=== PATIENT | female | born 2000 | race Caucasian/White ===

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

== ENCOUNTER → 2020-05-05 | Outpatient (CLI) | payer OTHER ==
[~2020-05-05] MED LIST changes: +ACHYD1T PO; -HYDR-3820 PO; -MONT10TA24 PO; +MONT10TA26 PO
== END ==
LOC: LAB FS 14:16
PROVIDERS: ATTEND Obstetrics & Gynecology
DX: O20.9 Hemorrhage in early pregnancy, unspecified (principal)
CPT/HCPCS: 36415; 84702

== ENCOUNTER → 2020-05-12 | Outpatient (CLI) | payer OTHER ==
[2020-05-12 09:59] LABS: HEMATOCRIT 40 % (35-52); HEMOGLOBIN 14.2 G/DL (11.5-16.0); MEAN CORPUSCULAR HEMOGLOBIN 31 PG (25-34); MEAN CORPUSCULAR HGB CONC 35 G/DL (32-36); MEAN CORPUSCULAR VOLUME 87 FL (80-99); MEAN PLATELET VOLUME 8.4 FL (7.4-10.4); PLATELET COUNT 280 10^3/uL (130-400); RED CELL DISTRIBUTION WIDTH 11.7 % (10.0-14.5); WHITE BLOOD COUNT 4.6 10^3/uL (4.3-11.0)
[2020-05-12 10:00] LABS: BASOPHILS % (AUTO) 0 % (0-10); EOSINOPHILS # (AUTO) 0.3 10^3/uL (0.0-0.3); EOSINOPHILS % (AUTO) 6 % (0-10); LYMPHOCYTES % (AUTO) 30 % (12-44); MONOCYTES % (AUTO) 6 % (0-12); NEUTROPHILS # (AUTO) 2.7 X 10^3 (1.8-7.8); NEUTROPHILS % (AUTO) 58 % (42-75)
[2020-05-12 10:01] LABS: LYMPHOCYTES # (AUTO) 1.4 X 10^3 (1.0-4.0); MONOCYTES # (AUTO) 0.3 X 10^3 (0.0-1.0)
== END ==
LOC: LAB FS 09:23
PROVIDERS: ATTEND Family Medicine
DX: Z34.00 Encounter for supervision of normal first pregnancy, unspecified trimester (principal)
CPT/HCPCS: 36415; 80055; 86703; 87088

== ENCOUNTER → 2020-07-06 | Outpatient (CLI) | payer MEDICAID | LOC: LAB FS 09:56 | PROVIDERS: ATTEND Family Medicine | DX: Z34.02 Encounter for supervision of normal first pregnancy, second trimester (principal); Z3A.00 Weeks of gestation of pregnancy not specified | CPT/HCPCS: 36415; 82105; 84702; 86336 ==

== ENCOUNTER 2020-08-22 19:54 | Emergency (ER) | payer MEDICAID ==
[~2020-08-22] VITALS: Ht 160 cm; Wt 53.5 kg
[2020-08-22 20:10] VITALS: BP 124/65
--- NOTE | 2020-08-22 20:15 | ED EENT ---
History of Present Illness General Chief Complaint: Dental Problems/Pain Stated Complaint: TOOTH/EAR PAIN Source: patient Exam Limitations: no limitations History of Present Illness Date Seen by Provider: Aug 22, 2020 Time Seen by Provider: 19:55 Initial Comments The patient is a pleasant 20-year-old female who presents for evaluation of left upper dental pain which is been bothering her for several weeks. She saw a dentist approximately 5 weeks ago and was told that she needed a root canal and was prescribed amoxicillin. She states that she took the medication for a while because East infection so she stopped for a week and a half and then she started taking it again. She is now out of antibiotics. She says the pain is why she is here. She saw a dentist last week and they're planning to do a root canal on her tooth September 30. She states that she cannot wait that long. She says that she is approximately 24 weeks at this time and is only taking Tylenol for the pain. She denies any other complaints. She is alert and oriented 4, calm, and appears to be in no distress this time. Timing/Duration: gradual Severity: moderate Prearrival Treatment: over the counter meds (Tylenol) Associated Symptoms: tooth pain Allergies and Home Medications Allergies Coded Allergies: No Known Drug Allergies (Unverified , 12/15/17) Home Medications Albuterol Sulfate 1 Puff Puff, 2 PUFF IH Q4H PRN for WHEEZING, (Reported) 1 PUFF = 90 MCG Montelukast Sodium 10 Mg Tablet, 10 MG PO DAILY, (Reported) Pantoprazole Sodium 40 Mg Tablet.dr, 40 MG PO DAILY, (Reported) Patient Home Medication List Home Medication List Reviewed: Yes Review of Systems Review of Systems Constitutional: no symptoms reported Eyes: No Symptoms Reported Ears: No Symptoms Reported Nose: no symptoms reported Mouth: other (left upper posterior dental pain) Throat: no symptoms reported Respiratory: no symptoms reported Cardiovascular: no symptoms reported Gastrointestinal: no symptoms reported Musculoskeletal: no symptoms reported Skin: no symptoms reported Neurological: No Symptoms Reported Hematologic/Lymphatic: No Symptoms Reported Immunological/Allergic: no symptoms reported All Other Systems Reviewed Negative Unless Noted: Yes Past Sjdrdai-Kkxslp-Wqxzfp Hx Past Med/Social Hx: Reviewed Nursing Past Med/Soc Hx Patient Social History Recent Foreign Travel: No Contact w/Someone Who Travel: No Recent Hopitalizations: No Seasonal Allergies Seasonal Allergies: Yes Past Medical History Surgeries: Yes Gallbladder Respiratory: No Asthma Currently Using CPAP: No Currently Using BIPAP: No Cardiac: Yes Heart Murmur Reproductive Disorders: No Female Reproductive Disorders: Denies Sexually Transmitted Disease: No HIV/AIDS: No Gastroesophageal Reflux Anxiety Adverse Reaction/Blood Tranf: No (N/A) Physical Exam Height, Weight, BMI Height: 5'2.00" Weight: 100lbs. 0.0oz. [id number]; 18.3 BMI Method: General Appearance: WD/WN, no apparent distress Eyes: bilateral eye normal inspection, bilateral eye PERRL, bilateral eye EOMI Mouth/Throat: other (tooth #16 with dental salas ) Neck: non-tender, full range of motion, supple Cardiovascular: regular rate, rhythm, no edema, no murmur Respiratory: lungs clear, normal breath sounds, no respiratory distress Neurologic/Psychiatric: sawyer cork slabs II-XII nml as tested, no motor/sensory deficits, alert, normal mood/affect, oriented x 3 Skin: normal color, warm/dry Progress/Results/Core Measures Progress Progress Note : Progress Note @2027 - Patient given some dental resources to contact to get an appointment for a root canal sooner than September 30. Intraoral anesthetic injection was discussed with the patient but declined. I'm not comfortable prescribing narcotic medications given that the patient is . Advised the patient to continue Tylenol and also to try topical gels and pastes which are available [id number]. Advised the patient to also contact her dentist to see if they can move the appointment sooner. The patient expresses verbal understanding and agreement with the plan and is stable for discharge. Departure Impression Primary Impression: Pain, dental Additional Impression: Dental caries Disposition: 01 HOME, SELF-CARE Condition: Stable Departure-Patient Inst. Decision time for Depature: 20:16 Referrals: BRIANNE CONTRERAS DO (PCP) Primary Care Physician MIKHAIL CONTRERAS DNP (Family) Primary Care Physician [facility] Add. Discharge Instructions: Call this dentist tomorrow: [facility] [id number] [address] Call TODAY Open 7 days a week just for you Edna may contact your dentist and let them know that you need to be seen sooner than your previously arranged appointment. Return to the emergency Department immediately for new or worsening symptoms. Because of the Tylenol and topical medications are really the only choice for your pain. Take the prescribed antibiotic as directed. Scripts Fluconazole (Fluconazole) 150 Mg Tablet 150 MG PO ONCE for 1 Day, #1 TAB Prov: CORA PEREZ DO 08/22/20 Penicillin V Potassium (Penicillin V Potassium) 500 Mg Tablet 500 MG PO Q4H for 10 Days, #40 TAB Prov: CORA PEREZ DO 08/22/20 CORA PEREZ DO Aug 22, 2020 20:15
[2020-08-22] MEDS ORDERED: FLUC150T2 PO (20:19)
[2020-08-22] MEDS ORDERED: PENI500T PO (20:19)
== END 2020-08-22 20:30 | disposition home or self-care (01) ==
LOC: EDUNIT# 19:54 → ER FS 19:55
DX: O99.612 Diseases of the digestive system complicating pregnancy, second trimester (principal); K04.7 Periapical abscess without sinus; K21.9 Gastro-esophageal reflux disease without esophagitis; O99.512 Diseases of the respiratory system complicating pregnancy, second trimester; J45.909 Unspecified asthma, uncomplicated; Z79.2 Long term (current) use of antibiotics; Z3A.24 24 weeks gestation of pregnancy
CPT/HCPCS: 99282

== ENCOUNTER → 2020-09-28 | Outpatient (CLI) | payer MEDICAID ==
[~2020-09-28] MED LIST changes: +FLUC150T2 PO; -MONT10TA26 PO; +MONT10TA97 PO; +PENI500T PO
[2020-09-28 10:49] LABS: WHITE BLOOD COUNT 7.2 10^3/uL (4.3-11.0)
[2020-09-28 10:50] LABS: MEAN PLATELET VOLUME 8.8 FL (7.4-10.4)
== END ==
LOC: LAB FS 10:17
PROVIDERS: ATTEND Family Medicine
DX: Z34.02 Encounter for supervision of normal first pregnancy, second trimester (principal); Z3A.00 Weeks of gestation of pregnancy not specified
CPT/HCPCS: 36415; 82950; 85027; 86780

== ENCOUNTER 2022-06-25 16:31 | Emergency (ER) | payer MEDICAID ==
[~2022-06-25] VITALS: Ht 160 cm; Wt 49.4 kg
[~2022-06-25 16:31] MED LIST changes: +ACET-93 PO; -FLUC150T2 PO; +FLUC150T41 PO; +IBUP-844 PO; +MONT-40 PO; -MONT10TA97 PO; +OXC5T PO; +PREN-142 PO
[2022-06-25] MEDS ORDERED: TRAM50TA3 (17:00)
[2022-06-25] MEDS ORDERED: AMOX500T2 (17:00)
[2022-06-25] MEDS ORDERED: METR-143 (17:00)
--- NOTE | 2022-06-25 17:13 | ED EENT ---
History of Present Illness General Chief Complaint: Facial Problems Stated Complaint: L SIDE JAW PAIN Nursing Triage Note: ARRIVED VIA AMB WITH COMPLAINTS OF LEFT SIDED FACIAL PAIN AND SWELLING. STATE SHE HAS WENT TO THE DENTIST WHO FOUND NOTHING WRONG BUT PUT HER ON TWO DIFFERENT ABX AND TRAMADOL WHICH IS NOT HELPING HER PAIN. STATES SHE ALSO WENT TO URGENT CARE. Source: patient Exam Limitations: no limitations History of Present Illness Date Seen by Provider: Jun 25, 2022 Time Seen by Provider: 16:47 Initial Comments Patient to the ER by private conveyance with mother and chief complaint of 4 days of left-sided upper jaw swelling and pain. She went and saw a dentist who told her that she might have TMJ or an abscess and put her on amoxicillin and Flagyl as well as tramadol. She does not feel the tramadol helped. She is been using Advil, Aleve, Tylenol and finally whiskey to control the pain. She is having a little nausea but no vomiting. No fevers or chills. She did have a root canal on her left lower jaw in the past. Allergies and Home Medications Allergies Coded Allergies: No Known Drug Allergies (Unverified , 12/15/17) Patient Home Medication List Home Medication List Reviewed: Yes Amoxicillin (Amoxicillin) 500 Mg Tablet, (Reported) Entered as Reported by: PRISCILLA KIRK on 06/25/221699 Last Action: New Order Hydrocodone/Acetaminophen (Hydrocodone-Acetamin 5-325 mg) 5 Mg-325 Mg Tablet, 1 TAB PO Q6H PRN for PAIN-MODERATE (5-7) Prescribed by: JOSSIE ÁLVAREZ on 06/25/221719 Metronidazole (Metronidazole) 250 Mg Tablet, (Reported) Entered as Reported by: PRISCILLA KIRK on 06/25/221699 Last Action: New Order Ondansetron (Ondansetron Odt) 4 Mg Tab.rapdis, 4 MG PO Q6H PRN for NAUSEA/VOMITING Prescribed by: JOSSIE ÁLVAREZ on 06/25/221718 Tramadol HCl (Tramadol HCl) 50 Mg Tablet, (Reported) Entered as Reported by: PRISCILLA KIRK on 06/25/221699 Last Action: New Order Discontinued Medications Acetaminophen (Acetaminophen) 500 Mg Tablet, 1,000 MG PO Q8HR Discontinued Reason: No Longer Taking Prescribed by: KM CUNHA on 11/29/20854 Last Action: Discontinued Ibuprofen (Ibu) 600 Mg Tablet, 600 MG PO Q6HR Discontinued Reason: No Longer Taking Prescribed by: KM CUNHA on 11/29/20854 Last Action: Discontinued Oxycodone Hcl (Oxyir Tablet) 5 Mg Tab, 5 MG PO Q4HR PRN for PAIN-SEVERE (8-10) Discontinued Reason: No Longer Taking Prescribed by: KM CUNHA on 11/29/20854 Last Action: Discontinued Vit No.124/Iron/FA ( Vitamin Tablet) 1 Each Tablet, 1 EACH PO DAILY, (Reported) Discontinued Reason: No Longer Taking Entered as Reported by: JACOBY ANGELA on 11/27/202050 Last Action: Discontinued Review of Systems Review of Systems Constitutional: No chills, No diaphoresis Eyes: Denies Blindness, Denies Blurred Vision Ears: Denies Dizziness, Denies Pain Nose: denies clots, denies congestion Mouth: see HPI; denies clots; pain, swelling Throat: denies pain, denies swelling Respiratory: No cough, No short of breath Past Azkjwho-Lqkhbf-Cakmqf Hx Patient Social History Tobacco Use?: No Substance use?: No Immunizations Up To Date Tetanus Booster (TDap): Unknown Seasonal Allergies Seasonal Allergies: Yes Past Medical History Surgeries: Yes Gallbladder Respiratory: No Asthma Currently Using CPAP: No Currently Using BIPAP: No Cardiac: Yes Heart Murmur Neurological: No Reproductive Disorders: No Female Reproductive Disorders: Denies Sexually Transmitted Disease: No HIV/AIDS: No Gastrointestinal: Yes Gastroesophageal Reflux Musculoskeletal: No Endocrine: No Cancer: No Psychosocial: Yes Anxiety Integumentary: No Blood Disorders: No Adverse Reaction/Blood Tranf: No (N/A) Physical Exam Vital Signs Vital Signs - First Documented 06/25/22 16:35 Temp 36.3 Pulse 77 Resp 16 B/P (MAP) 127/88 (101) Pulse Ox 98 O2 Delivery Room Air Height, Weight, BMI Height: 5'2.00" Weight: 100lbs. 0.0oz. 45.002282za; 19.00 BMI Method: General Appearance: WD/WN, mild distress Eyes: bilateral eye normal inspection, bilateral eye PERRL, bilateral eye EOMI Ears: bilateral ear auricle normal, bilateral ear canal normal, bilateral ear TM normal Nose: normal inspection; No active bleeding, No discharge Mouth/Throat: other (Significantly swollen, injected gingiva around the posterior left upper teeth without pointing or palpable fluctuance.) Neck: non-tender, supple, normal inspection, lymphadenopathy (L) Cardiovascular: normal peripheral pulses, regular rate, rhythm Respiratory: no respiratory distress, no accessory muscle use Progress/Results/Core Measures Results/Orders My Orders Orders - JOSSIE ÁLVAREZ Ondansetron Oral Dissolve Tab (Zofran (06/25/22 17:14) Hydrocodone/Apap 5/325 Tablet (Lortab 5 (06/25/22 17:15) Lidocaine 2% Viscous 15 Ml (Xylocaine Vi (06/25/22 17:15) Vital Signs/I&O 06/25/22 16:35 Temp 36.3 Pulse 77 Resp 16 B/P (MAP) 127/88 (101) Pulse Ox 98 O2 Delivery Room Air Blood Pressure Mean: 101 Progress Progress Note : Time: 17:22 Progress Note Viscous lidocaine, ondansetron and hydrocodone. We will send her out some scripts for pain control and encouraged her to continue to take the antibiotics. Set expectations for improvement with antibiotics and encouraged her to follow- up with the dentist. Return precautions were gone over. Departure Impression Primary Impression: Dental abscess Disposition: 01 HOME, SELF-CARE Condition: Stable Departure-Patient Inst. Decision time for Depature: 17:16 Referrals: LIA REEVES MD (PCP/Family) Primary Care Physician Patient Instructions: Tooth Abscess (DC) Add. Discharge Instructions: Drink lots of fluids. Ondansetron 1 or 2 tablets every 6 hours as needed for nausea and/or vomiting. Naproxen 2 tablets twice a day on a routine basis until the swelling and pain goes away. Warm compresses applied directly to the face as often as necessary to relieve pain. Tylenol 1000 mg every 8 hours needed for pain. Hydrocodone 1 tablet every 6 hours as needed for severe breakthrough pain keeping you from being functional. Hydrocodone will cause constipation and drowsiness. Use MiraLAX, Colace etc. as necessary to stay regular. Continue taking the antibiotics as prescribed. It typically takes 3 to 4 days on antibiotics to start to see some improvement. Keep your follow-up appointment with the dentist. Return to the ER for fever above 102.5, intractable vomiting or other worrisome symptoms. Viscous lidocaine 5 cc applied to gauze packed directly over the teeth that hurt and held in place for 30 minutes without eating or drinking every 6 hours as needed to reduce pain. All discharge instructions reviewed with patient and/or family. Voiced understanding. Scripts Ondansetron (Ondansetron Odt) 4 Mg Tab.rapdis 4 MG PO Q6H PRN for NAUSEA/VOMITING, #8 TAB 0 Refills Prov: JOSSIE ÁLVAREZ 06/25/22 Hydrocodone/Acetaminophen (Hydrocodone-Acetamin 5-325 mg) 5 Mg-325 Mg Tablet 1 TAB PO Q6H PRN for PAIN-MODERATE (5-7), #15 TAB 0 Refills Prov: JOSSIE ÁLVAREZ 06/25/22 JOSSIE ÁLVAREZ Jun 25, 2022 17:13
[2022-06-25] MEDS ORDERED: ONDANSETRON 4 MG (ZOFRAN) ORAL DISSOLVE TAB PO STA (17:14)
[2022-06-25] MEDS ORDERED: HYDROcodone/APAP 5 MG/325 MG (LORTAB) TAB PO ONE (17:15)
[2022-06-25] MEDS ORDERED: LIDOCAINE 2% VISCOUS 15 ML UDC PO ONE (17:15)
[2022-06-25] MEDS ORDERED: ACHD5005 PO (17:19)
[2022-06-25] MEDS ORDERED: ONDA4TAB11 PO (17:19)
[2022-06-25 17:26] VITALS: BP 127/88
== END 2022-06-25 17:27 | disposition home or self-care (01) ==
LOC: EDUNIT# 16:31 → ER FS 16:33
DX: K04.7 Periapical abscess without sinus (principal); Z28.310 Unvaccinated for COVID-19
CPT/HCPCS: 99283